=== PATIENT | female | born 1990 | race Caucasian/White ===

== ENCOUNTER 2017-09-27 21:50 | Inpatient (IN) | payer BC ==
[~2017-09-27] VITALS: Ht 162.6 cm; Wt 76.0 kg
[2017-09-27] MEDS ORDERED: NEWBORN KIT ONE (22:15)
[2017-09-27] MEDS ORDERED: OXYTOCIN 30U/ 0.9% NaCL 500ML 500 ML IV ONE (22:20)
[2017-09-27] MEDS ORDERED: OXYTOCIN 30U/ 0.9% NaCL 500ML 500 ML IV PRN ×2 (22:20)
[2017-09-27] MEDS ORDERED: MISOPROSTOL 25 MCG TABLET VG PRN (22:30)
[2017-09-27] MEDS ORDERED: FENTANYL PF 100 MCG/2ML IV PRN (22:30)
[2017-09-27] MEDS ORDERED: TERBUTALINE 1 MG/ML, 1ML IVPush PRN (22:30)
[2017-09-27] MEDS ORDERED: ONDANSETRON 2MG/ML, 2ML IVPush PRN (22:30)
[2017-09-27] MEDS ORDERED: ALUMINUM/MAG/SIMETHICONE 30 ML UDC PO PRN (22:30)
[2017-09-27] MEDS ORDERED: FENTANYL PF 100 MCG/2ML IVPush PRN (22:30)
[2017-09-27 22:47] LABS: BASOPHILS # (AUTO) 0.03 x10^3/uL (0-0.1); BASOPHILS % (AUTO) 0 % (0-1); EOSINOPHILS # (AUTO) 0.01 x10^3/uL (0-0.4); EOSINOPHILS % (AUTO) 0 % (1-7); LYMPHOCYTES # (AUTO) 1.85 x10^3/uL (1-3.4); LYMPHOCYTES % (AUTO) 24 % (22-44); MD NO; MEAN CORPUSCULAR HEMOGLOBIN 32.1 pg (27.0-34.8); MEAN CORPUSCULAR HGB CONC 34.6 g/dL (32.4-35.8); MEAN CORPUSCULAR VOLUME 92.8 fL (80-100); MEAN PLATELET VOLUME 8.5 fL (7.4-10.4); MONOCYTES # (AUTO) 0.45 x10^3/uL (0.2-0.8); MONOCYTES % (AUTO) 6 % (2-9); NEUTROPHILS # (AUTO) 5.28 x10^3/uL (1.8-6.8); NEUTROPHILS % (AUTO) 69 % (42-75); PLATELET COUNT 172 x10^3/uL (130-400); RED BLOOD COUNT 3.88 x10^6/uL (3.82-5.3); RED CELL DISTRIBUTION WIDTH 13.6 % (9.6-15.2)
[2017-09-27 22:50] VITALS: BP 123/69
[2017-09-27] MEDS ORDERED: OXYTOCIN 30U/ 0.9% NaCL 500ML 500 ML ONE (23:14)
[2017-09-28] MEDS ORDERED: LACTATED RINGERS 1,000 ML IVBOLUS PRN ×2 (02:00→02:30)
[2017-09-28] MEDS: LACTATED RINGERS 1,000 ML IV SCH ×4 (02:12→10:29)
[2017-09-28] MEDS ORDERED: OXYTOCIN 30U/ 0.9% NaCL 500ML 500 ML IV PRN (02:12)
[2017-09-28] MEDS ORDERED: FENTANYL/BUPIV./NS/PF 250 ML EPIDCONT SCH (02:29)
[2017-09-28] MEDS ORDERED: EPHEDRINE 50 MG/ML, 1ML IVPush PRN (02:30)
[2017-09-28] MEDS ORDERED: NALOXONE 0.4 MG/ML, 1ML IVPush PRN (02:30)
[2017-09-28] MEDS ORDERED: BUPIVACAINE/PF 0.25% ONE (02:31)
[2017-09-28] MEDS ORDERED: FENTANYL/BUPIV./NS/PF 250 ML EPIDCONT ONE (02:31)
[2017-09-28] MEDS: D5%-LACTATED RINGERS 1,000 ML IV SCH ×2 (04:05→10:12)
[2017-09-28] MEDS ORDERED: LIDOCAINE-MPF 2% ,5ML ONE ×2 (10:19→10:34)
[2017-09-28] MEDS ORDERED: LIDOCAINE 1%-EPI 1:100K, 20ML ONE (10:35)
[2017-09-28] MEDS ORDERED: MISOPROSTOL 200 MCG TABLET PR ONE (11:00)
[2017-09-28 13:20] VITALS: BP 120/74
[2017-09-28] MEDS: OXYTOCIN 30U/ 0.9% NaCL 500ML 500 ML IV SCH (16:41)
[2017-09-28] MEDS ORDERED: ACETAMINOPHEN 325 MG TABLET PO PRN (17:00)
[2017-09-28] MEDS ORDERED: HYDROcodone/APAP 5/325 TABLET PO PRN (17:00)
[2017-09-28] MEDS: IBUPROFEN 600 MG TABLET PO PRN (17:07)
[2017-09-28 17:08] VITALS: BP 118/78
[2017-09-28 19:40] VITALS: BP 105/65
[2017-09-28 20:55] LABS: BASOPHILS # (AUTO) 0.03 x10^3/uL (0-0.1); BASOPHILS % (AUTO) 0 % (0-1); EOSINOPHILS # (AUTO) 0.01 x10^3/uL (0-0.4); EOSINOPHILS % (AUTO) 0 % (1-7); LYMPHOCYTES # (AUTO) 1.34 x10^3/uL (1-3.4); LYMPHOCYTES % (AUTO) 13 % (22-44); MD NO; MEAN CORPUSCULAR HEMOGLOBIN 31.7 pg (27.0-34.8); MEAN PLATELET VOLUME 8.4 fL (7.4-10.4); MONOCYTES # (AUTO) 0.55 x10^3/uL (0.2-0.8); MONOCYTES % (AUTO) 5 % (2-9); NEUTROPHILS # (AUTO) 8.13 x10^3/uL (1.8-6.8); NEUTROPHILS % (AUTO) 81 % (42-75); PLATELET COUNT 143 x10^3/uL (130-400); RED BLOOD COUNT 3.82 x10^6/uL (3.82-5.3); RED CELL DISTRIBUTION WIDTH 13.8 % (9.6-15.2)
[2017-09-28] MEDS: HYDROcodone/APAP 5/325 TABLET PO PRN (21:13)
[2017-09-28] MEDS: DOCUSATE 100 MG CAPSULE PO PRN (21:13)
[2017-09-29 00:10] VITALS: BP 116/77
[2017-09-29] MEDS: OXYTOCIN 30U/ 0.9% NaCL 500ML 500 ML IV SCH (02:41)
[2017-09-29 04:40] VITALS: BP 102/68
[2017-09-29] MEDS: HYDROcodone/APAP 5/325 TABLET PO PRN (06:23)
[2017-09-29] MEDS ORDERED: PRENATAL VIT/IRON/FA 1 EACH TABLET PO SCH (09:00)
[2017-09-29 10:00] VITALS: BP 109/72
[2017-09-29] MEDS: DOCUSATE 100 MG CAPSULE PO PRN (10:04)
[2017-09-29] MEDS: IBUPROFEN 600 MG TABLET PO PRN (12:52)
[2017-09-29] MEDS ORDERED: IBUP-1222 PO (13:11)
[2017-09-29] MEDS ORDERED: HYDR-883 PO (13:13)
[2017-09-29] MEDS ORDERED: SENN-52 PO (13:13)
== END 2017-09-29 18:19 | disposition home or self-care (01) | DRG 775 ==
LOC: LDOP 21:50 → LDIP 21:52 → 2NW 09-28 13:10
PROVIDERS: ADMIT Obstetrics & Gynecology; ATTEND Obstetrics & Gynecology
PROC: 10E0XZZ Delivery of Products of Conception, External Approach (ICD-10-PCS; principal; 2017-09-28)
PROC: 0KQM0ZZ Repair Perineum Muscle, Open Approach (ICD-10-PCS; 2017-09-28)
PROC: 3E0R3BZ Introduction of Anesthetic Agent into Spinal Canal, Percutaneous Approach (ICD-10-PCS; 2017-09-28)
PROC: 00HU33Z Insertion of Infusion Device into Spinal Canal, Percutaneous Approach (ICD-10-PCS; 2017-09-28)
DX: O40.3XX0 Polyhydramnios, third trimester, not applicable or unspecified (principal); O70.1 Second degree perineal laceration during delivery; Z37.0 Single live birth; Z3A.39 39 weeks gestation of pregnancy
CPT/HCPCS: 36415; 85025; 86850; 86900; J3490; J2590; J3010; J7120; J7121